=== PATIENT | male | born 2000 | race Caucasian/White ===

== ENCOUNTER 2020-01-09 13:28 | Outpatient (CLI) | payer BC | END 2020-01-09 23:59 | disposition home or self-care (01) | LOC: LAB.S 13:28 | PROVIDERS: ATTEND Physician Assistant Medical | DX: J02.9 Acute pharyngitis, unspecified (principal); Z20.828 Contact with and (suspected) exposure to other viral communicable diseases | CPT/HCPCS: 87070; 87077; 87275; 87276 ==